=== PATIENT | female | born 1955 ===

== ENCOUNTER 2024-06-19 05:05 | Day surgery (SDC) | payer OTHER ==
[2024-06-12 10:07] VITALS: BP 116/82
[2024-06-12 10:14] LABS: HEMATOCRIT 39.5 % (36.0-45.00); HEMOGLOBIN 13.4 g/dL (12.0-15.00); MEAN CELL VOLUME 86.6 fL (80.00-100.00); MEAN CORPUSCULAR HEMOGLOBIN 29.3 pg (27.00-32.0); MEAN CORPUSCULAR HGB CONC 33.8 g/dl (32.0-36.0); PLATELET COUNT 293 K/uL (150-450); RED BLOOD COUNT 4.57 M/uL (4.00-6.00); RED CELL DISTRIBUTION WIDTH 14.5 % (11.5-14.5); URINE APPEARANCE Clear; URINE BILIRRUBIN Negative (NEGATIVE); URINE BLOOD Moderate; URINE COLOR Yellow; URINE KETONE Negative (NEGATIVE); URINE LEUKOCYTE Moderate; URINE NITRATE Negative; URINE PROTEIN Negative (NEGATIVE); URINE UROBILINOGEN 0.2 E.U./dl
[2024-06-12 10:19] LABS: URINE BACTERIA 3256.9 uL (0.0-1933); URINE EPITHELIAL CELLS 39.8 uL (0.0-38.8); URINE RBC 13.7 uL (0.0-20.8); URINE WBC 161.5 uL (0.0-23.2)
[2024-06-12 10:27] LABS: URINE CAST 1.37 uL (0.0-1.40); URINE GLUCOSE >=1000 MG/DL (NEGATIVE)
[2024-06-12 10:31] LABS: INR 0.98; PARTIAL THROMBOPLASTIN TIME 25.2 SECONDS (22.0-34.0); PROTHROMBIN TIME 10.7 SECONDS (9.0-11.5)
[2024-06-12 12:00] LABS: ALBUMIN 4.1 gm/dL (3.4-5.0); BILIRUBIN TOTAL 1.07 mg/dL (0.3-1.2); CALCIUM 10.3 mg/dL (8.5-10.1); CREATININE SERUM 1.29 mg/dL (0.55-1.02); GFR 41.35; GLOBULINA 4.5 G/DL (2.4-3.5); POTASSIUM 3.98 mEq/L (3.5-5.1); TOTAL PROTEIN 8.6 gm/dL (6.4-8.2)
[~2024-06-19] VITALS: Ht 157.5 cm; Wt 80.7 kg
[~2024-06-19 05:05] MED LIST: BUSPIRONE HCL7.5 MG PO; CHILDREN'S ASPI81 MG PO; CLONAZEPAM1 MG PO; ROSUVASTATIN CA20 MG PO; SYNJARDY 5-5001 EACH PO; SYNTHROID50 MCG PO; VALSARTAN-HCTZ1 EAC3 PO
[2024-06-19] MEDS ORDERED: CEFAZOLIN SODIUM 1,000 MG VIAL ONE (06:19)
[2024-06-19] MEDS ORDERED: BUPIVACAINE HCL/MPF 0.5% 30ML VIAL ONE (06:40)
[2024-06-19] MEDS ORDERED: KETOROLAC TROMETHAMINE 30 MG VIAL ONE (06:40)
[2024-06-19] MEDS ORDERED: LIDOCAINE HCL 1%/EPINEPHRINE 20ML VIAL IJ ONE (06:41)
[2024-06-19] MEDS ORDERED: SUGAMMADEX SODIUM 200 MG/2 ML VIAL IV ONE (07:47)
[2024-06-19] MEDS ORDERED: MORPHINE SULFATE 4 MG/ML VIAL IV ONE ×2 (09:55→10:25)
== END 2024-06-19 11:40 | disposition home or self-care (01) ==
LOC: CIR.AMB 05:05
PROVIDERS: ATTEND Orthopaedic Surgery
DX: M75.121 Complete rotator cuff tear or rupture of right shoulder, not specified as traumatic (principal); M19.011 Primary osteoarthritis, right shoulder; M75.21 Bicipital tendinitis, right shoulder; Z91.041 Radiographic dye allergy status; Z91.013 Allergy to seafood; I10 Essential (primary) hypertension; E11.9 Type 2 diabetes mellitus without complications; E03.9 Hypothyroidism, unspecified